=== PATIENT | male | born 1990 | race Caucasian/White ===

== ENCOUNTER 2022-10-07 14:14 | Emergency (ER) | payer OTHER ==
[~2022-10-07] VITALS: Ht 172.7 cm; Wt 113.4 kg
[2022-10-07] MEDS ORDERED: CEPHALEXIN500 M1 PO (15:15)
== END 2022-10-07 15:28 | disposition home or self-care (01) ==
LOC: ED 14:14
DX: S50.811A Abrasion of right forearm, initial encounter (principal); V89.2XXA Person injured in unspecified motor-vehicle accident, traffic, initial encounter; Y93.55 Activity, bike riding; Y92.410 Unspecified street and highway as the place of occurrence of the external cause; Y99.8 Other external cause status